=== PATIENT | female | born 1980 | race American Indian/Alaskan Native ===

== ENCOUNTER 2019-04-15 14:56 | Emergency (ER) | payer SELFPAY ==
[2019-04-15] MEDS ORDERED: CATAPRES PO ONE ×2 (16:28→18:00)
--- NOTE | 2019-04-15 16:32 | Emergency Department Report ---
ED General Adult HPI - General Chief complaint: High BP Stated complaint: SENT FROM [facility] Time Seen by Provider: 04/15/19 16:25 Source: patient Mode of arrival: Ambulatory Limitations: No Limitations - History of Present Illness Initial comments: Patient is 38 years old female with history of hypertension, noncompliant with her medication. Patient stated that last time she took blood pressure medicine was 7 months ago. Patient sent from [facility] office for evaluation of high blood pressure. Patient stated that she went to our pull over machine operator for contact lens placement found that her blood pressure is high and send it to the ER. Patient complaining of headache but denied any weakness, numbness or tingling sensation. Patient also denied any chest pain or shortness of breath. Severity scale (0 -10): 10 - Related Data Allergies Allergy/AdvReac Type Severity Reaction Status Date / Time iodine Allergy Anaphylaxis Verified 04/15/19 15:02 shellfish derived Allergy Anaphylaxis Verified 04/15/19 15:02 ED Review of Systems ROS: Stated complaint: SENT FROM [facility] Other details as noted in HPI Comment: All other systems reviewed and negative Constitutional: denies: chills, fever Respiratory: denies: cough, shortness of breath, SOB with exertion Cardiovascular: denies: chest pain, palpitations Gastrointestinal: denies: abdominal pain, nausea, vomiting Neurological: headache. denies: weakness, numbness, paresthesias, confusion, abnormal gait ED Past Medical Hx - Past Medical History Previous Medical History?: Yes Hx Hypertension: Yes - Surgical History Past Surgical History?: No - Social History Smoking Status: Never Smoker Substance Use Type: None ED Physical Exam - General Limitations: No Limitations General appearance: alert, in no apparent distress - Head Head exam: Present: atraumatic, normocephalic, normal inspection - Eye Eye exam: Present: normal appearance, PERRL - ENT ENT exam: Present: normal exam, normal orophraynx, mucous membranes moist - Neck Neck exam: Present: normal inspection, full ROM. Absent: tenderness, meningismus, lymphadenopathy, thyromegaly - Respiratory Respiratory exam: Present: normal lung sounds bilaterally - Cardiovascular Cardiovascular Exam: Present: regular rate, normal rhythm, normal heart sounds - GI/Abdominal GI/Abdominal exam: Present: soft, normal bowel sounds. Absent: distended, tenderness, guarding, rebound, rigid, organomegaly, mass, bruit, pulsatile mass, hernia - Extremities Exam Extremities exam: Present: normal inspection, full ROM, normal capillary refill. Absent: tenderness, pedal edema, calf tenderness - Back Exam Back exam: Present: normal inspection, full ROM. Absent: CVA tenderness (R), CVA tenderness (L), muscle spasm, paraspinal tenderness, vertebral tenderness - Neurological Exam Neurological exam: Present: alert, oriented X3, CN II-XII intact, normal gait, reflexes normal - Psychiatric Psychiatric exam: Present: normal mood - Skin Skin exam: Present: warm, intact, normal color ED Course Vital Signs 04/15/19 04/15/19 04/15/19 15:05 16:07 16:49 Temperature 98.5 F 98.8 F Pulse Rate 92 H 80 77 Respiratory 18 18 20 Rate Blood Pressure 189/118 Blood Pressure 212/114 [Left] Blood Pressure 176/102 189/118 [Right] O2 Sat by Pulse 100 100 100 Oximetry ED Medical Decision Making - Lab Data Result diagrams: 04/15/19 16:36 04/15/19 16:36 - Radiology Data Radiology results: report reviewed - Medical Decision Making Patient is 38 years old female with history of hypertension, noncompliant with her medication. Patient stated that last time she took blood pressure medicine was 7 months ago. Patient sent from [facility] office for evaluation of high blood pressure. Patient stated that she went to our pull over machine operator for contact lens placement found that her blood pressure is high and send it to the ER. Patient complaining of headache but denied any weakness, numbness or ti ngling sensation. Patient also denied any chest pain or shortness of breath. Patient received clonidine 0.2 mg. Patient stated that headache is completely resolved. CT brain is negative for acute finding. Labs reviewed that is unremarkable. Patient given a prescription for Norvasc and advised to follow-up with her primary care physician in the next 2-3 days and to attend to the ER if symptoms are not improved. Critical care attestation.: If time is entered above; I have spent that time in minutes in the direct care of this critically ill patient, excluding procedure time. ED Disposition Clinical Impression: Headache, Malignant hypertension Disposition: DC-01 TO HOME OR SELFCARE Is pt being admited?: No Condition: Stable Instructions: Hypertension (ED), Acute Headache (ED) Referrals: [facility] [Provider Group] - 3-5 Days
[2019-04-15 16:52] LABS: Basophils % (Auto) 0.6 % (0.0-1.8); Eosinophils # (Auto) 0.2 K/mm3 (0.0-0.4); Eosinophils % (Auto) 4.2 % (0.0-4.3); Hematocrit 42.2 % (30.3-42.9); Hemoglobin 14.3 gm/dl (10.1-14.3); Lymphocytes # (Auto) 2.2 K/mm3 (1.2-5.4); Lymphocytes % (Auto) 39.2 % (13.4-35.0); Mean Corpuscular HGB Conc 34 % (30-34); Mean Corpuscular Volume 95 fl (79-97); Monocytes # (Auto) 0.5 K/mm3 (0.0-0.8); Monocytes % (Auto) 8.9 % (0.0-7.3); Platelet Count 299 K/mm3 (140-440); Red Blood Count 4.44 M/mm3 (3.65-5.03); Red Cell Distribution Width 14.9 % (13.2-15.2)
[2019-04-15 17:12] LABS: BUN/Creatinine Ratio 13; Blood Urea Nitrogen 8 mg/dL (7-17); Calcium 8.5 mg/dL (8.4-10.2); Hemolysis Index 11
--- NOTE | 2019-04-15 17:40 | Cat Scan Report ---
CT head/brain wo con INDICATION / CLINICAL INFORMATION: 38 years Female; headache, high blood pressure. TECHNIQUE: Routine CT head without contrast. All CT scans at this location are performed using CT dos e reduction for ALARA by means of automated exposure control. COMPARISON: None. FINDINGS: BRAIN / INTRACRANIAL CONTENTS: No acute hemorrhage, mass effect, midline shift, hydrocephalus, or acu te, large territorial infarct. No chronic infarct or focal atrophy. No significant white matter abnor mality. CRANIOCERVICAL JUNCTION: No significant abnormality. ORBITS: No significant abnormality of visualized orbits. SINUSES / MASTOIDS: No significant abnormality the visualized paranasal sinuses or mastoid air cells. ADDITIONAL FINDINGS: None. IMPRESSION: 1. No focal mass, hemorrhage, hydrocephalus, or acute, large territorial infarct. Signer Name: Serg Gallo MD, III Signed: 04/15/2019 5:36 PM Workstation Name: [id number]
[2019-04-15 18:10] LABS: Bilirubin,Urine NEG (Negative); Blood,Urine SM (Negative); Color,Urine Yellow (Yellow); Protein,Urine <15 mg/dL mg/dL (Negative); Urobilinogen,Urine < 2.0 mg/dL (<2.0); WBC,Urine < 1.0 /HPF (0.0-6.0)
[2019-04-15 18:33] VITALS: BP 172/106
== END 2019-04-15 18:29 | disposition home or self-care (01) ==
LOC: ED 14:56
DX: I10 Essential (primary) hypertension (principal); Z91.013 Allergy to seafood; Z91.041 Radiographic dye allergy status
CPT/HCPCS: 36415; 70450; 80048; 81001; 85025; 93005; 93010; 99284